=== PATIENT | male | born 1950 | race Caucasian/White ===

== ENCOUNTER 2020-03-26 00:06 | Outpatient (CLI) | payer MEDICARE, OTHER, SELFPAY ==
[2020-03-26 18:58] LABS: SARS-CoV-2 RNA PCR Negative
== END 2020-03-26 00:07 | disposition home or self-care (01) ==
LOC: ANHCOVIDDT 00:07
PROVIDERS: PCP Internal Medicine; Visit Provider Internal Medicine Gastroenterology
DX: Z01.812 Encounter for preprocedural laboratory examination (principal); Z20.828 Contact with and (suspected) exposure to other viral communicable diseases
CPT/HCPCS: 87635; C9803; U0003

== ENCOUNTER 2020-03-28 00:13 | Day surgery (SDC) | payer MEDICARE, OTHER, SELFPAY ==
[2020-03-18 15:27] VITALS: BMI 22.1
[2020-03-28 08:07] VITALS: BP 124/74; PULSE 80; RESP 16; TEMP 36.6; O2SAT 98; BMI 21.2
[2020-03-28] MEDS: LACTATED RINGERS 1,000 ML 150 ML IV CONT (08:18)
--- NOTE | 2020-03-28 08:25 | PM.HPGS ---
History of Present Illness History of Present Illness Consent: Risks, benefits, and alternatives have been discussed and questions answered. Patient agrees to proceed with procedure. Chief complaint: Hx Colon Polyps Narrative: Jerardo Ugarte is a 70 year old W male referred for screening colonoscopy secondary to history of colonic polyps and a family history of colon cancer in his brother diagnosed in his 50s. patient states he has had 3 colonoscopies in the past and previous institution is last was 3 years ago and 3 polyps were removed. Patient is asymptomatic. REPLACED BY [facility] Past Medical History Medical History (Updated 11/28/19 @ 09:08 by Milad Morales, ) Basal cell carcinoma BPH (benign prostatic hyperplasia) Colon polyps Erectile dysfunction Gout Vitamin D deficiency Surgical History Surgical History (Updated 11/28/19 @ 08:34 by Yazmin Correa [facility]) H/O hernia repair History of mastoidectomy History of thyroidectomy Family History Family History (Updated 11/28/19 @ 08:36 by Yazmin Correa CMA) Mother , age 54 MVA (motor vehicle accident) Father , age 33 freak accident Electrocution Social History Social History Gender identity (if verbalized by the patient): Male Meds Home Medications and Allergies Home Medications Medication Instructions Recorded Confirmed Type cholecalciferol (vitamin D3) 50 50 mcg PO DAILY 11/28/19 03/28/20 History mcg (2,000 unit) capsule multivitamin,hw-qvsv-oozeqwia 1 tablet PO DAILY 11/28/19 03/28/20 History omega-3 fatty acids 1,000 mg 1,000 mg PO DAILY 11/28/19 03/28/20 History capsule tadalafil 20 mg tablet 20 mg PO DAILY PRN 11/28/19 03/18/20 History tamsulosin 0.4 mg capsule 0.4 mg PO DAILY 11/28/19 03/28/20 History allopurinol 200 mg PO DAILY 03/18/20 03/28/20 History finasteride 5 mg PO DAILY 03/18/20 03/28/20 History Allergies Allergy/AdvReac Type Severity Reaction Status Date / Time No Known Allergies Allergy Verified 03/28/20 07:52 Vital Signs Vital Signs - 24 hr 03/28/20 08:07 Temperature 36.6 C Pulse Rate 80 Respiratory Rate 16 Blood Pressure 124/74 Pulse Oximetry 98 Exam Const: Orientation/consciousness: patient oriented x3 Resp: Auscultation: clear to auscultation bilaterally Cardio: Rate: regular rate Rhythm: regular rhythm Heart sounds: no murmurs GI: GI Palp: Yes Soft to palpation, No Tenderness to palpation present (GI), Yes No hepatosplenomegaly present and No Palpable mass present Auscultation: normal bowel sounds Neuro: General: patient oriented x3 and no focal motor deficits Extrem: General: no pedal edema Assessment and Plan Additional Plan Screening colonoscopy in high risk patient
--- NOTE | 2020-03-28 08:32 | P.PNAN_ITS ---
Anes - Initial Pre Proc Eval Procedure: Operation Date: 03/28/20 09:00 Proposed Procedures p Screening Colonoscopy - Hernan Dow MD Date/Time: 03/28/20 08:32 Surgeon: Hernan Dow MD Pre Op Diagnosis: Hx Colon Polyps Patient Data Age: 70 Gender: M Height: 5 ft 10 in Weight: 67.1 kg Last Vital Signs Temp 98 F 03/28/20 08:07 Pulse 80 03/28/20 08:07 Resp 16 03/28/20 08:07 BP 124/74 03/28/20 08:07 Pulse Ox 98 03/28/20 08:07 Allergies Allergy/AdvReac Type Severity Reaction Status Date / Time No Known Allergies Allergy Verified 03/28/20 07:52 Home Medications Medication Instructions Recorded Confirmed Type cholecalciferol (vitamin D3) 50 50 mcg PO DAILY 11/28/19 03/28/20 History mcg (2,000 unit) capsule multivitamin,bu-ivuv-byanzdrc 1 tablet PO DAILY 11/28/19 03/28/20 History omega-3 fatty acids 1,000 mg 1,000 mg PO DAILY 11/28/19 03/28/20 History capsule tadalafil 20 mg tablet 20 mg PO DAILY PRN 11/28/19 03/18/20 History tamsulosin 0.4 mg capsule 0.4 mg PO DAILY 11/28/19 03/28/20 History allopurinol 200 mg PO DAILY 03/18/20 03/28/20 History finasteride 5 mg PO DAILY 03/18/20 03/28/20 History Patient hx anesthesia problems: none Family hx anesthesia problems: none [facility] Past Medical History Medical History (Updated 03/28/20 @ 08:32 by Gerson Reyes MD) Basal cell carcinoma BPH (benign prostatic hyperplasia) Colon polyps Erectile dysfunction GERD (gastroesophageal reflux disease) Gout Vitamin D deficiency Surgical History Surgical History (Updated 11/28/19 @ 08:34 by Yazmin Correa CMA) H/O hernia repair History of mastoidectomy History of thyroidectomy Family History Family History (Updated 11/28/19 @ 08:36 by Yazmin Correa CMA) Mother , age 54 MVA (motor vehicle accident) Father , age 33 freak accident Electrocution Social History Social History Gender identity (if verbalized by the patient): Male Anes - Eval Final PreProcedure Day of Procedure 03/28/20 08:32 Patient weight: normal Heart: regular rate and rhythm Lungs: clear to auscultation Airway: Mallampati scale class II Neurological: alert and oriented Last oral intake: >/= 8 hours ASA classification: II Emergent: no Anesthetic plan: proceed Anesthesia type and monitoring: general GIVS and standard monitoring Informed Consent: The patient's anesthetic plan and its attendant risks and benefits were discussed with the patient/family/POA. Questions were solicited and answers provided to the satisfaction of the patient/family/POA.
[2020-03-28 09:18] VITALS: BP 110/77; PULSE 80; RESP 16; O2SAT 98
[2020-03-28 09:28] VITALS: BP 108/64; PULSE 73; RESP 20; O2SAT 99
[2020-03-28 09:56] VITALS: BP 114/69; PULSE 72; RESP 19; O2SAT 100
== END 2020-03-28 10:07 | disposition home or self-care (01) ==
PROVIDERS: PCP Internal Medicine; Visit Provider Internal Medicine Gastroenterology
PROC: 0DJD8ZZ Inspection of Lower Intestinal Tract, Via Natural or Artificial Opening Endoscopic (ICD-10-PCS; CPT 45378; principal; 2020-03-28 09:00)
DX: Z12.11 Encounter for screening for malignant neoplasm of colon (principal); Z86.010 Personal history of colon polyps; Z80.0 Family history of malignant neoplasm of digestive organs; K57.30 Diverticulosis of large intestine without perforation or abscess without bleeding; K64.4 Residual hemorrhoidal skin tags; K64.8 Other hemorrhoids; K21.9 Gastro-esophageal reflux disease without esophagitis; N40.0 Benign prostatic hyperplasia without lower urinary tract symptoms; M10.9 Gout, unspecified; E55.9 Vitamin D deficiency, unspecified; Z85.828 Personal history of other malignant neoplasm of skin
CPT/HCPCS: G0121; J2704; J7120

== ENCOUNTER 2021-02-13 08:33 | Outpatient (CLI) | payer MEDICARE, OTHER, SELFPAY ==
--- NOTE | ~2021-02-13 | XR_ITS ---
EXAMINATION: XR chest 2V 02/13/2021 08:55 INDICATION: Prostate cancer PROCEDURE: PA and lateral views of the chest COMPARISON: 2 view chest FINDINGS: The lungs are clear. The cardiomediastinal silhouette is within normal limits. There are no pleural effusions. There is no pneumothorax suspected. IMPRESSION: 1: NO ACUTE CARDIOPULMONARY DISEASE. Reviewed, dictated and finalized at location B.
--- NOTE | ~2021-02-13 | NM_ITS ---
EXAMINATION: NM bone scan whole body DATE: 02/13/2021 12:30 INDICATION: Prostate cancer. TECHNIQUE: 26.4 mCi Tc-99m HDP was administered intravenously. Delayed whole-body scintigrams were o btained. COMPARISON: CT abdomen and pelvis 02/13/2021 FINDINGS: There is increased activity in subtrochanteric region of proximal right femur correlating w ith a sclerotic lesion by CT. By CT, the lesion is eccentric with sclerotic rim and central sclerotic matrix. The lesion is contiguous with the posterior cortex, which is hypodense relative to normal co rtex. There is joint-centered increased activity in the sternoclavicular joints and acromioclavicular joints, likely osteoarthritis. IMPRESSION: 1. Lesion of increased activity in subtrochanteric region of proximal right femur, most likely a yolis gn lesion such as fibrous dysplasia. Metastatic disease cannot be excluded. Reviewed, dictated and finalized at location A. IMPRESSION: 1. Lesion of increased activity in subtrochanteric region of proximal right fem ur, most likely a benign lesion such as fibrous dysplasia. Metastatic disease c annot be excluded.
--- NOTE | ~2021-02-13 | CT_ITS ---
EXAMINATION: CT abdomen pelvis w con DATE: 02/13/2021 09:13 INDICATION: Prostate cancer TECHNIQUE: Computed tomography (CT) of the abdomen and pelvis was performed with 100 cc Omnipaque 350 intravenous contrast. The dose-length product was 254.08 mGy-cm. Automated exposure control and iter ative reconstruction technique were employed. COMPARISON: No prior studies for comparison. FINDINGS: There is dependent atelectasis. Heart size normal. No significant pleural or pericardial ef fusion. No significant vascular abnormality. No lymphadenopathy. There are changes of left inguinal h ernia repair. Colonic diverticulosis without evidence for diverticulitis. Mild bladder wall thickenin g. Nonobstructive bowel gas pattern. There is a 1 cm cyst of the liver contain macroscopic fat, most likely benign hepatic lipoma. There a re bilateral renal cysts, largest in the right kidney measures 3.6 cm. Gallbladder is present. The sp monique contains calcified granulomas. The pancreas and adrenal glands are normal. Normal appendix. No f ree air or free fluid. There are degenerative changes of the hips. There is a focal subtle focal scle rotic lesion proximal aspect of the right femur. Mild lower lumbar spondylosis. IMPRESSION: 1. Subtle sclerotic lesion proximal aspect of the right femur, most likely benign, although correlati on with bone scan recommended to assess for abnormal uptake. 2: Bladder wall thickening which may be due to underdistention, although cystitis not excluded. Reviewed, dictated and finalized at location B. IMPRESSION: 1. Subtle sclerotic lesion proximal aspect of the right femur, most likely yolis gn, although correlation with bone scan recommended to assess for abnormal upta ke. 2: Bladder wall thickening which may be due to underdistention, although cystit is not excluded.
[2021-02-13 09:04] LABS: Estimated Glomerular Filt Rate 60
== END 2021-02-13 08:34 | disposition home or self-care (01) ==
PROVIDERS: PCP Internal Medicine; Visit Provider Urology
DX: C61 Malignant neoplasm of prostate (principal); R93.7 Abnormal findings on diagnostic imaging of other parts of musculoskeletal system
CPT/HCPCS: 71046; 74177; 78306; A9561; Q9967

== ENCOUNTER 2021-04-24 09:56 | Outpatient (CLI) | payer MEDICARE, OTHER, SELFPAY ==
--- NOTE | 2021-04-24 10:44 | ECG_ITS ---
Measurements Intervals [place] Rate: 59 P: 65 CT: 175 QRS: 26 QRSD: 92 T: 34 QT: 406 QTc: 404 Interpretive Statements SINUS BRADYCARDIA ATRIAL PREMATURE COMPLEX POSSIBLE LEFT ATRIAL ENLARGEMENT BASELINE ARTIFACT- I, II, AVR, AVL BORDERLINE ECG Electronically Signed On 04-24-2021 11:32:08 CDT by Sudhakar Chapa D.O.
[2021-04-24 11:42] LABS: Basophils Percent Auto 0.3 % (0.2-1.2); Eosinophils Absolute Auto 0.3 K/mm3 (0-0.3); Eosinophils Percent Auto 3.8 % (0-4.4); Hematocrit 48.1 % (42.0-52.0); Hemoglobin 15.4 g/dL (14.0-18.0); Immature Granulocyte Absolute 0.02 K/mm3 (0.00-0.031); Immature Granulocyte Percent A 0.3 % (0-0.5); Lymphocytes Absolute Auto 2.18 K/mm3 (0.9-3.2); Lymphocytes Percent Auto 31.5 % (18.3-44.2); Mean Corpuscular Hemoglobin 30.7 pg (26-34); Mean Corpuscular Volume 95.8 fl (80-100); Mean Platelet Volume 10.3 fl (7.4-10.4); Monocytes Absolute Auto 0.9 K/mm3 (0.1-0.6); Monocytes Percent Auto 13.3 % (2.6-8.5); Neutrophils Absolute Auto 3.5 K/mm3 (1.3-6.7); Neutrophils Percent Auto 50.8 % (45.5-73.1); Platelet Count Result 220 k/mm3 (150-375); Red Blood Count 5.02 M/mm3 (4.6-6.20); Red Cell Distribution Width 13.1 % (11.5-14.5); White Blood Count 6.9 K/mm3 (4.5-10.0)
[2021-04-24 11:45] LABS: Add Urine Microscopic? YES; Appearance Urine Clear (Clear); Bilirubin Urine Negative (Negative); Blood Urine 2+ (Negative); Color Urine Yellow (Yellow); Glucose Urine UA Negative (Negative); Ketones Urine Negative (Negative); Leukocyte Esterase Ur Negative LEU/UL (Negative); Mucus Urine Rare /lpf; Nitrate Urine Negative (Negative); Protein Urine Negative (Negative); RBC Urine 0-2 /hpf (0-2); Specific Grav Ur 1.019 (1.001-1.035); Urobilinogen Urine Negative mg/dL (<2.0); WBC Urine 0-3 /hpf
[2021-04-24 11:47] LABS: Alanine Aminotransferase 34 U/L (4-50); Albumin Level 4.6 g/dL (3.5-5.1); Alkaline Phosphatase 66 U/L (38-126); Anion Gap 8 mmol/L (8-16); Aspartate Amino Transferase 42 U/L (17-59); Bilirubin,Total 1.4 mg/dL (0.2-1.3); Blood Urea Nitrogen 23 mg/dL (9-20); Calcium 9.9 mg/dL (8.4-10.2); Carbon Dioxide 29 mmol/L (22-30); Chloride 103 mmol/L (98-107); Estimated Glomerular Filt Rate > 60; Glucose 105 mg/dL (75-110); Potassium 4.2 mmol/L (3.4-5.0); Sodium 140 mmol/L (137-145)
[2021-04-24 12:01] LABS: Partial Thromboplastin Time 30.1 SECONDS (22.3-36.8); Prothrombin Time 13.3 Seconds (11.1-14.7)
== END 2021-04-24 09:57 | disposition home or self-care (01) ==
LOC: ANHSURGERY 10:02
PROVIDERS: PCP Internal Medicine; Visit Provider Urology
DX: C61 Malignant neoplasm of prostate (principal); Z01.818 Encounter for other preprocedural examination; R94.31 Abnormal electrocardiogram [ECG] [EKG]
CPT/HCPCS: 36415; 80053; 81001; 85025; 85610; 85730; 93005

== ENCOUNTER 2021-05-08 01:36 | Day surgery (SDC) | payer MEDICARE, OTHER, SELFPAY ==
[2021-04-24 10:05] VITALS: BMI 21.5
[2021-04-24 10:25] VITALS: BP 111/78; PULSE 65; RESP 16; TEMP 37.2; O2SAT 99
--- NOTE | 2021-05-05 07:46 | PM.IMHP ---
H&P: HPI History of Present Illness Date/Time: 05/05/21 07:46 Patient is a 71-year-old male who recently underwent evaluation for a PSA of 12.6. Prostate ultrasound and biopsy revealed a small, 17 gram prostate with Lul adenocarcinoma 6 and 7 in all 12 of 12 cores. Two of the cores demonstrated intraductal carcinoma. Staging CT abd/pelvis, bone scan and chest x-ray were essentially unremarkable. There was an area of unusual uptake in the femur but his alkaline phosphatase was normal. After discussion of therapeutic options including robotic prostatectomy, radiation therapy in its various forms, active surveillance and androgen ablation he elects for the former. He is aware of the risk including, but not limited to, adverse cardiopulmonary events, persistent carcinoma, need for adjuvant or salvage therapy, rectal injury, urinary incontinence and erectile dysfunction. Chief Complaint: Prostate cancer Review of Systems Cardiovascular: Cardiovascular: Denies chest pain, Denies lightheadedness, Denies palpitations and Denies dyspnea Respiratory: Respiratory: Denies dyspnea Gastrointestinal: Gastrointestinal: Denies diarrhea, Denies nausea and Denies vomiting Genitourinary: Genitourinary: Denies hematuria and Denies dysuria Endocrine: Endocrine: Denies palpitations [facility] Past Medical History Medical History Basal cell carcinoma BPH (benign prostatic hyperplasia) Colon polyps Elevated PSA Erectile dysfunction GERD (gastroesophageal reflux disease) Gout Vitamin D deficiency Surgical History Surgical History H/O hernia repair History of mastoidectomy History of thyroidectomy Family History Family History Mother , age 54 MVA (motor vehicle accident) Father , age 33 freak accident Electrocution Social History Social History Smoking packs per day: 2 Smoking cigarettes per day: 40.0 Years smoked: 15 Smoking pack-years: 30.00 Smoking status: Former smoker Tobacco type: cigarettes Smoking end date: 10/18/83 Alcohol intake: current Drinks per week: 4 Gender identity (if verbalized by the patient): Male Spiritual care concerns: No Meds Home Medications and Allergies Home Medications Medication Instructions Recorded Confirmed Type cholecalciferol (vitamin D3) 50 50 mcg PO DAILY 11/28/19 04/24/21 History mcg (2,000 unit) capsule multivitamin,my-toit-ozqxineh 1 tablet PO DAILY 11/28/19 04/24/21 History omega-3 fatty acids 1,000 mg 1,000 mg PO DAILY 11/28/19 04/24/21 History capsule tadalafil 20 mg tablet 20 mg PO DAILY PRN 11/28/19 04/24/21 History finasteride 5 mg PO DAILY 03/18/20 04/24/21 History allopurinol 200 mg PO QPM 04/24/21 04/24/21 History famotidine [Pepcid AC] 20 mg PO PRN PRN 04/24/21 04/24/21 History glucos sul [id number]-[id number]-C-Mn 1 cap PO DAILY 04/24/21 04/24/21 History [Glucosamine Chondroitin] tamsulosin 0.4 mg PO HS 04/24/21 04/24/21 History turmeric 400 mg PO DAILY 04/24/21 04/24/21 History vitamin E 100 unit PO DAILY 04/24/21 04/24/21 History Allergies Allergy/AdvReac Type Severity Reaction Status Date / Time No Known Allergies Allergy Verified 04/24/21 10:06 Exam Const: General: no acute distress Resp: Effort & Inspection: normal respiratory effort GI: Inspection: non-distended GI Palp: No abdominal tenderness and No Guarding due to palpation present (GI) Auscultation: normal bowel sounds Assessment and Plan Assessment and plan (1) Prostate cancer: Code(s): C61 - Malignant neoplasm of prostate Status: Acute Assessment and Plan: robotic assisted laparoscopic prostatectomy with bilateral pelvic lymphadenectomy
--- NOTE | 2021-05-07 13:42 | WPDANESEPPF ---
Anes - Initial Pre Proc Eval Procedure: Operation Date: 05/08/21 07:30 Proposed Procedures p Robotic Prostatectomy with Bilateral Pelvic Lymph Nodes Dissection - Silvano Lee MD Date/Time: 05/07/21 13:42 Surgeon: Silvano Lee MD Pre Op Diagnosis: prostate cancer Patient Data Age: 71 Gender: M Height: 1.78 m Weight: 68.2 kg Last Vital Signs Temp 99.0 F 04/24/21 10:25 Pulse 65 04/24/21 10:25 Resp 16 04/24/21 10:25 BP 111/78 04/24/21 10:25 Pulse Ox 99 04/24/21 10:25 Allergies Allergy/AdvReac Type Severity Reaction Status Date / Time No Known Allergies Allergy Verified 05/08/21 06:21 Home Medications Medication Instructions Recorded Confirmed Type cholecalciferol (vitamin D3) 50 50 mcg PO DAILY 11/28/19 05/08/21 History mcg (2,000 unit) capsule multivitamin,ce-evqq-hiqdnlns 1 tablet PO DAILY 11/28/19 05/08/21 History omega-3 fatty acids 1,000 mg 1,000 mg PO DAILY 11/28/19 05/08/21 History capsule tadalafil 20 mg tablet 20 mg PO DAILY PRN 11/28/19 05/08/21 History finasteride 5 mg PO DAILY 03/18/20 05/08/21 History allopurinol 200 mg PO QPM 04/24/21 05/08/21 History famotidine [Pepcid AC] 20 mg PO PRN PRN 04/24/21 05/08/21 History glucos sul 4PWq-oyq-pifkr-C-Mn 1 cap PO DAILY 04/24/21 05/08/21 History [Glucosamine Chondroitin] tamsulosin 0.4 mg PO HS 04/24/21 05/08/21 History turmeric 400 mg PO DAILY 04/24/21 05/08/21 History vitamin E 100 unit PO DAILY 04/24/21 05/08/21 History Patient hx anesthesia problems: none Family hx anesthesia problems: none PMFSH Past Medical History Medical History Basal cell carcinoma BPH (benign prostatic hyperplasia) Colon polyps Elevated PSA Erectile dysfunction GERD (gastroesophageal reflux disease) Gout Vitamin D deficiency Surgical History Surgical History H/O hernia repair History of mastoidectomy History of thyroidectomy Family History Family History Mother , age 54 MVA (motor vehicle accident) Father , age 33 freak accident Electrocution Social History Social History Smoking packs per day: 2 Smoking cigarettes per day: 40.0 Years smoked: 15 Smoking pack-years: 30.00 Smoking status: Former smoker Tobacco type: cigarettes Smoking end date: 10/18/83 Alcohol intake: never Drinks per week: 4 Living arrangements: with family Gender identity (if verbalized by the patient): Male Spiritual care concerns: No Anes - Eval Final PreProcedure Day of Procedure 05/07/21 13:42 Patient weight: normal Heart: regular rate and rhythm Lungs: clear to auscultation Airway: Mallampati scale class II Neurological: alert and oriented Last oral intake: >/= 8 hours ASA classification: III Emergent: no Anesthetic plan: proceed Anesthesia type and monitoring: general ETT and standard monitoring Informed Consent: The patient's anesthetic plan and its attendant risks and benefits were discussed with the patient/family/POA. Questions were solicited and answers provided to the satisfaction of the patient/family/POA.
[2021-05-08] VITALS (13 sets, daily range): BP systolic 107–132; BP diastolic 56–77; PULSE 64–94; RESP 12–20; TEMP 36.1–36.9; O2SAT 93–100; BMI 20.7
--- NOTE | 2021-05-08 06:27 | WPDHPUPDATE1 ---
History and Physical Update Update Date/Time: 05/08/21 06:27 History and Physical has been reviewed, including an updated exam of the patient. There are NO changes in the patient's condition. Risks, benefits, and alternatives have been discussed and questions answered. Patient agrees to proceed with procedure.
[2021-05-08] MEDS: LACTATED RINGERS 1,000 ML 30 ML IV CONT ×2 (06:43→10:34)
[2021-05-08] MEDS: ceFAZolin 2 GM/D5W 50 ML 2 GM/50 ML BAG IVPB (07:30)
--- NOTE | 2021-05-08 10:44 | W.PM.PROC2 ---
Procedure Note - Detailed Date of Procedure 05/08/21 Pre-op Diagnosis Prostate cancer Post-op Diagnosis same Procedure Performed Robotic assisted laparoscopic prostatectomy with bilateral pelvic lymphadenectomy Surgeon Silvano Lee MD [employer] [facility] [place] Anesthesia general Findings No gross extraprostatic disease Description of Procedure The patient was brought to the operative suite, where he was prepped and draped in routine sterile fashion while in a dorsal lithotomy, deep Trendelenburg position. A supraumbilical 10 mm trocar was placed after insufflation of the abdomen with a Veress needle. Three robotic ports were then placed under direct vision. Two of these were placed in the right lower quadrant - 10 cm and 20 cm lateral to, and in line with, the umbilicus. A third robotic trocar was placed 10 cm to the left of the umbilicus, and 20 cm to the left of the umbilicus, a 12 mm standard laparoscopic trocar was placed to be used as an operations and intelligence assistant port. Lastly, a 5 mm trocar was placed in the left upper quadrant midway between the umbilicus and the left robotic trocar. Attention was then turned to the prostatectomy. I opted for a posterior approach in this patient. An incision was made in the parietal peritoneum along the posterior bladder/posterior prostate about 2 cm above the reflection of the peritoneum over the anterior rectum. The seminal vesicles and vas deferens were immediately identified. Dissection is undertaken in a fashion so as to avoid electrocautery as much as possible, particularly near the tips of the seminal vesicles. Dissection was also carried out in the midline so as to avoid any encounters with the ureters. The vas deferens and the seminal vesicles were dissected in their entirety to the base of the prostate. The plane anterior to Denoviller's fascia, anterior to the rectum and posterior to the prostate was then developed. I then dropped the bladder by incising the anterior parietal peritoneum just lateral to the median umbilical ligaments bilaterally. The bladder was dropped from the anterior abdominal and pelvic wall. The endopelvic fascia was identified and incised bilaterally, allowing for dissection of the posterior-lateral aspect of the prostate. The puboprostatic ligaments were transected near their origin from the posterior pubic ramus. This posterior lateral dissection of the prostate is also undertaken in a fashion so as to avoid electrocautery as much as possible. The dorsal vein of the penis is then secured with an 0 -Vicryl ligature. Attention is then turned to the bladder neck. The anterior bladder neck is incised at the vesico-prostatic junction. The previously placed urethral catheter was drawn through the urethrotomy. A very small bladder neck was maintained throughout the remainder of this dissection. The posterior bladder neck was incised in a fashion so as to avoid any injury to the ureteral orifices. Again, the small aperture of the bladder neck was maintained. The previously dissected vas deferens and the seminal vesicles were brought through the posterior bladder neck incision. The lateral prostatic pedicles were then carefully dissected from the lateral aspect of the prostate bilaterally. The prostatic pedicles were secured with Weck clips and transected. The neurovascular bundles were carefully dissected from the posterior-lateral aspect of the prostate. The dorsal vein of the penis was incised with electrocautery. Using cold scissors, the urethra was incised. After withdrawing the previously placed urethral catheter, the posterior urethra was sharply incised, as was the rectalurethralis muscle. Attention was then turned to a bilateral pelvic lymphadenectomy. The limits of this dissection were similar bilaterally. Specifically, the limits were the bifurcation of the common iliac vein proximally, the inguinal ligament distally, the obturator nerve posteriorly and the anterior asp
--- NOTE | 2021-05-08 11:32 | SUR.PHASEI ---
PT HAS MILD GENERALIZED SHAKING; DECLINED MED FOR IT.
--- NOTE | 2021-05-08 12:22 | PC.NURSE ---
This patient, Jerardo Ugarte, was admitted to Medical Room 244-. Patient/family oriented to hospital policies and general routines including ID bracelet, bed and alarms, visiting hours, pain management, procedures, bathroom and other care routines, personal items, smoking policy, room service/diet, and visiting hours. Information on how to activate the Rapid Response Team has been discussed. Patient/Family are encouraged to report perceived risks to care and to ask questions if they do not understand what they are told or what they should do.
[2021-05-08] MEDS: LACTATED RINGERS 1,000 ML 125 ML IV CONT ×2 (12:43→21:38)
[2021-05-08] MEDS: HYOSCYAMINE SULFATE 0.125 MG TABLET SUBLINGUAL (14:14)
[2021-05-08] MEDS: KETOROLAC 15 MG/ML VIAL (*BKC) IV PUSH (14:14)
[2021-05-08] MEDS: allopurinoL 100 MG TABLET 200 MG PO (17:47)
[2021-05-09 01:39] VITALS: BP 111/53; PULSE 54; RESP 20; TEMP 36.3; O2SAT 98
[2021-05-09 05:39] VITALS: BP 110/60; PULSE 57; RESP 20; TEMP 36.4; O2SAT 98
[2021-05-09 05:51] LABS: Hematocrit 35.7 % (42.0-52.0); Hemoglobin 11.8 g/dL (14.0-18.0)
[2021-05-09 06:06] LABS: Anion Gap 5 mmol/L (8-16); Blood Urea Nitrogen 15 mg/dL (9-20); Calcium 8.4 mg/dL (8.4-10.2); Carbon Dioxide 29 mmol/L (22-30); Chloride 104 mmol/L (98-107); Estimated CRCL calculation 52 ml/min; Estimated Glomerular Filt Rate > 60; Glucose 128 mg/dL (65-110); Potassium 4.1 mmol/L (3.4-5.0); Sodium 138 mmol/L (137-145)
--- NOTE | 2021-05-09 06:14 | WPDUROPN2 ---
Progress Note: A&P Assessment and Plan (1) Prostate cancer: Code(s): C61 - Malignant neoplasm of prostate Status: Acute Assessment and Plan: Doing well POD#1 Increase ambulation/diet Likely home later today Subjective Subjective Date/Time Seen: 05/09/21 06:14 Comfortable, no complaints Review of Systems Cardiovascular: Cardiovascular: Denies chest pain, Denies lightheadedness, Denies palpitations and Denies dyspnea Respiratory: Respiratory: Denies dyspnea Gastrointestinal: Gastrointestinal: Denies diarrhea, Denies nausea and Denies vomiting Genitourinary: Genitourinary: Denies hematuria and Denies dysuria Endocrine: Endocrine: Denies palpitations Exam Const: General: no acute distress Resp: Effort & Inspection: normal respiratory effort GI: Inspection: non-distended GI Palp: No abdominal tenderness and No Guarding due to palpation present (GI) Auscultation: normal bowel sounds Objective Data Vital Signs Vital Signs: Vital Signs - 24 hr 05/08/21 06:26 05/08/21 10:34 05/08/21 10:45 Temperature 97.0 F L 98.4 F Pulse Rate 84 64 66 Respiratory Rate 18 12 15 Blood Pressure 107/70 113/66 123/76 Pulse Oximetry 100 100 100 05/08/21 11:00 05/08/21 11:15 05/08/21 11:30 Temperature 98 F Pulse Rate 73 80 94 Respiratory Rate 16 18 18 Blood Pressure 117/69 132/77 111/75 Pulse Oximetry 100 96 93 05/08/21 11:45 05/08/21 11:54 05/08/21 12:09 Temperature 97.2 F L 97.2 F L Pulse Rate 70 74 79 Respiratory Rate 15 16 16 Blood Pressure 126/76 129/72 131/72 Pulse Oximetry 95 94 96 05/08/21 12:39 05/08/21 14:00 05/08/21 17:39 Temperature 97.3 F L 97.4 F L 97.4 F L Pulse Rate 75 64 66 Respiratory Rate 16 16 16 Blood Pressure 127/71 117/60 126/62 Pulse Oximetry 96 96 96 05/08/21 21:39 Temperature 98.3 F Pulse Rate 64 Respiratory Rate 20 Blood Pressure 119/56 L Pulse Oximetry 98 Intake/Output Intake/Output: Intake & Output 05/06/21 05/07/21 05/08/21 05/09/21 23:59 23:59 23:59 23:59 Intake Total 3670 100 Output Total 2645 Balance 1025 100 Meds/Results Medications: Active Medications Generic Name Dose Route Start Last Admin Trade Name Alissa PRN Reason Stop Dose Admin Allopurinol 200 mg 05/08/21 18:00 05/08/21 17:47 Allopurinol 100 Mg Tablet PO 200 mg QPM DAVID Administration Hyoscyamine 0.125 mg 05/08/21 11:54 05/08/21 14:14 Hyoscyamine Sulfate 0.125 Mg Tablet SUBLINGUAL 0.125 mg Q4H PRN Administration Bladder Spasm Lactated Ringer's 1,000 mls @ 125 mls/hr 05/08/21 11:54 05/08/21 21:38 Lr - Lactated Ringers Iv IV CONT 125 mls/hr .Q8H DAVID Administration Acetaminophen 1,000 mg in 100 mls @ 400 mls/hr 05/08/21 13:00 05/09/21 02:20 Ofirmev 1,000 Mg Ivpb IVPB 05/09/21 13:01 Infused Q6H DAVID Infusion Ketorolac Tromethamine 15 mg 05/08/21 11:54 05/08/21 14:14 Ketorolac 15 Mg/Ml Vial (*Bk) IV PUSH 05/09/21 11:55 15 mg Q6H PRN Administration Pain Rated 4-6 Levofloxacin 500 mg 05/09/21 09:00 Levofloxacin 500 Mg Tablet PO DAILY DAVID Naloxone HCl 0.1 mg 05/08/21 11:54 Naloxone Hcl 0.4 Mg/Ml Vial IV PUSH Q2M PRN Opiate Reversal Labs Labs: Laboratory Results - last 24 hr 05/08/21 05/09/21 05/09/21 06:41 05:25 05:25 Hgb 11.8 L D Hct 35.7 L Sodium 138 Potassium 4.1 Chloride 104 Carbon Dioxide 29 Anion Gap 5 L BUN 15 D Creatinine 1.10 Estim Creat Clear Calc 52 Estimated GFR > 60 Glucose 128 H Calcium 8.4 Blood Type O Positive Antibody Screen Negative
[2021-05-09] MEDS: LACTATED RINGERS 1,000 ML 125 ML IV CONT (08:05)
[2021-05-09] MEDS: levoFLOXacin 500 MG TABLET PO (08:05)
[2021-05-09 10:00] VITALS: BP 125/71; PULSE 63; RESP 16; TEMP 36; O2SAT 100
[2021-05-09] MEDS: CALCIUM CARBONATE (TUMS) 500 MG (200 MG ELEMENTAL) PO (10:49)
[2021-05-09] MEDS: HYOSCYAMINE SULFATE 0.125 MG TABLET SUBLINGUAL (12:04)
[2021-05-09] MEDS: FAMOTIDINE 20 MG TABLET PO (12:05)
--- NOTE | 2021-05-09 12:25 | PM.DS ---
DS: Admitting Diagnosis Admitting Diagnosis Prostate cancer DS: Discharge Diagnosis Discharge Diagnosis (1) Prostate cancer: Code(s): C61 - Malignant neoplasm of prostate Status: Acute DS: Summary Hospital Course Hospital Course: This patient was admitted on the morning of his planned robotic prostatectomy. This procedure was uneventful, as was his postoperative course. By the evening of the procedure he was sitting at the bedside in tolerating a liquid diet. The following morning he was ambulating freely and tolerating regular food. His catheter drainage remained essentially clear throughout. His postoperative hemoglobin and serum creatinine were unremarkable. At the time of discharge he has been instructed in appropriate care for his Ennis catheter with both a leg bag and bedside bag. He will be discharged with plans to follow-up in 1 week with a cystogram. Time Spent with Patient Time attestation: Total time spent providing and/or coordinating discharge services: Exam Const: General: no acute distress Resp: Effort & Inspection: normal respiratory effort GI: Inspection: non-distended GI Palp: No abdominal tenderness and No Guarding due to palpation present (GI) Auscultation: normal bowel sounds DS: Data Data Completed and Pending Pending studies at discharge: Pending at discharge 05/08/21 09:33 Surgical [PTH] Routine Surgical [PTH] Routine Labs on day of discharge: Labs from last 24 hours 05/09/21 05/09/21 05:25 05:25 Hgb 11.8 L D Hct 35.7 L Sodium 138 Potassium 4.1 Chloride 104 Carbon Dioxide 29 Anion Gap 5 L BUN 15 D Creatinine 1.10 Estim Creat Clear Calc 52 Estimated GFR > 60 Glucose 128 H Calcium 8.4 Discharge Plan Discharge Patient Disposition: Home, Self-Care Discharge Instructions: 1) Ennis catheter -> leg bag / bedside bag at night. 2) No lifting/straining >15lbs. x3 weeks. 3) No driving x1-week. 4) Resume normal, pre-operative diet. 5) My office will contact regarding follow-up in 1-week with cystogram. Stand Alone Forms: General Discharge Instructions Discharge Orders: Discharge Order (Routine); Ordered 05/09/21 Ordered By: Silvano Lee Discharge Medications: New docusate sodium [Colace] 100 mg capsule 100 mg PO DAILY Qty: 30 RF: 0 hydrocodone-acetaminophen 5-325 mg tablet 1 - 2 tablet PO Q6H PRN (Reason: pain) Qty: 20 RF: 0 sulfamethoxazole-trimethoprim 800-160 mg tablet 1 tablet PO Q12H Qty: 10 RF: 0 hyoscyamine sulfate 0.125 mg tablet 0.125 mg PO Q6H PRN (Reason: bladder spasms) Qty: 20 RF: 2 Continued tadalafil 20 mg tablet 20 mg PO DAILY PRN (Reason: Erectile Dysfunction) RF: 0 allopurinol 100 mg tablet 200 mg PO QPM RF: 0 famotidine [Pepcid AC] 20 mg Tablet 20 mg PO PRN PRN (Reason: Heartburn) RF: 0 Held omega-3 fatty acids [Fish Oil Concentrate] 1,000 mg capsule 1,000 mg PO DAILY RF: 0 Hold Instructions: Resume on 05/14/21. cholecalciferol (vitamin D3) 50 mcg (2,000 unit) capsule 50 mcg PO DAILY RF: 0 Hold Instructions: Resume on 05/14/21. Complete Multivitamin Tablet 1 tablet PO DAILY RF: 0 Hold Instructions: Resume on 05/14/21. tamsulosin 0.4 mg capsule 0.4 mg PO HS RF: 0 Hold Instructions: Resume on 05/14/21. vitamin E 100 unit Tablet 100 unit PO DAILY RF: 0 Hold Instructions: Resume on 05/14/21. Glucosamine Chondroitin 550-30-1 mg Capsule 1 cap PO DAILY RF: 0 Hold Instructions: Resume on 05/14/21. turmeric 400 mg Capsule 400 mg PO DAILY RF: 0 Hold Instructions: Resume on 05/14/21. Discontinued finasteride 5 mg Tablet 5 mg PO DAILY RF: 0
== END 2021-05-09 13:35 | disposition home or self-care (01) ==
LOC: ANHSURGERY 06:10 → ANH2MED 11:57
PROVIDERS: PCP Internal Medicine; Visit Provider Urology
PROC: 0VT04ZZ Resection of Prostate, Percutaneous Endoscopic Approach (ICD-10-PCS; CPT 55867; principal; 2021-05-08 07:30)
DX: C61 Malignant neoplasm of prostate (principal); K21.9 Gastro-esophageal reflux disease without esophagitis; M10.9 Gout, unspecified; E55.9 Vitamin D deficiency, unspecified; Z87.891 Personal history of nicotine dependence
CPT/HCPCS: 55866; 38571; S2900; 36415; 80048; 85014; 85018; 86850; 86900; 86901; 88305; 88307; 88309; A9270; J0131; J0690; J1100; J1170; J1885; J2250; J2405; J2704; J2710; J3010; J7030; J7120; Q9968

== ENCOUNTER 2021-05-16 13:05 | Outpatient (CLI) | payer MEDICARE, OTHER, SELFPAY ==
--- NOTE | ~2021-05-16 | XR_ITS ---
EXAMINATION: CYSTOGRAM DATE: 05/16/2021 13:37 INDICATION: Prostate cancer follow-up TECHNIQUE: Initial financial report service sales agent radiograph of the pelvis was performed. There was retrograde administration of Omnipaque 350 mixed with saline contrast into patient's existing vinson catheter. Fluoroscopic lynn ges of the pelvis were obtained. A post-void image was also performed. FINDINGS: There is normal filling of the bladder. Bladder margins are slightly trabeculated. No extra vasation of contrast or vesicoureteral reflux. Small bladder diverticulum noted along the right. IMPRESSION: 1. No evidence for bladder extravasation or reflux. Reviewed, dictated and finalized at location A.
== END 2021-05-16 13:06 | disposition home or self-care (01) ==
LOC: ANHIMG 13:08
PROVIDERS: PCP Internal Medicine; Visit Provider Urology
DX: C61 Malignant neoplasm of prostate (principal)
CPT/HCPCS: 51600; 74430; Q9967

== ENCOUNTER 2021-08-23 08:35 | Outpatient (CLI) | payer MEDICARE, SELFPAY ==
--- NOTE | ~2021-08-23 | MR_ITS ---
EXAMINATION: MR femur RT wo/w con DATE: 08/23/2021 10:06 INDICATION: Disorder of bone, unspecified. TECHNIQUE: Magnetic resonance imaging (MRI) of the right femur was performed without and with 13 mL M ultiHance intravenous contrast. Sequences included axial, coronal, and sagittal T1-weighted FSE and S TIR FSE, axial T1-weighted FS FSE, and postcontrast axial, coronal, and sagittal T1-weighted FS FSE. COMPARISON: CT abdomen and pelvis 02/13/2021, bone scan 02/13/2021 FINDINGS: Bone alignment is normal. No fracture. In the subtrochanteric region of proximal right femu r, there is a 3.1 cm lesion of increased T2-weighted signal intensity, decreased T1-weighted signal i ntensity, and contrast enhancement with involvement of the posterior cortex. There is moderate osteoa rthritis of the hips. The musculature is normal. IMPRESSION: 1. Lesion in subtrochanteric region of proximal right femur, stable from 02/13/2021. This finding is m ost likely a benign lesion such as fibrous dysplasia. Metastatic disease cannot be excluded. Reviewed, dictated and finalized at location A. NG MACHINE OPERATOR IMPRESSION: 1. Lesion in subtrochanteric region of proximal right femur, stable from 021. This finding is most likely a benign lesion such as fibrous dysplasia. Met astatic disease cannot be excluded.
[2021-08-23 09:11] LABS: Estimated Glomerular Filt Rate > 60
== END 2021-08-23 08:36 | disposition home or self-care (01) ==
PROVIDERS: PCP Internal Medicine; Visit Provider Nurse Practitioner
DX: M89.9 Disorder of bone, unspecified (principal)
CPT/HCPCS: 73720; A9577

== ENCOUNTER → 2022-09-08 10:26 | Outpatient (CLI) | payer MEDICARE, SELFPAY ==
--- NOTE | ~2022-09-08 | XR_ITS ---
XR chest 2V 09/08/2022 10:42 Indication: Pleurodynia Procedure: 2 view chest Comparison: 02/13/2021 Findings: Heart size normal. No focal air space disease, pulmonary edema, pleural effusion or suspect ed pneumothorax. No pleural effusion or pneumothorax. No acute osseous abnormality. Impression: 1: No acute cardiopulmonary disease. Reviewed, dictated and finalized at location B. KET WINDER OPERATOR Impression: 1: No acute cardiopulmonary disease.
== END ==
PROVIDERS: PCP Nurse Practitioner; Visit Provider Nurse Practitioner
DX: R07.81 Pleurodynia (principal)
CPT/HCPCS: 71046

== ENCOUNTER 2022-09-21 13:20 | Outpatient (CLI) | payer MEDICARE, SELFPAY ==
--- NOTE | ~2022-09-21 | PE_ITS ---
EXAMINATION: PET_PETPSMAST_PT DATE: 09/21/2022 15:32 INDICATION: Prostate cancer with rising PSA level TECHNIQUE: 10.928 mCi of pipflufolastat F-18 (18-F-DCFPyL) was administered i.v. Low dose computed t omography (CT) images were acquired from the base of the brain to the base of the brain to the proxim al thighs for attenuation correction and anatomic localization. Positron emission tomography (PET) im ages were acquired in the same distribution beginning 80 minutes after injection. Images including fu sed PET/CT images were reconstructed in axial, coronal, and sagittal planes. Automated exposure contr ol technique was employed. The dose-length product was 506.24mGy-cm. COMPARISON: CT abdomen and pelvis and bone scan dated 02/13/2021 and MRI dated 08/23/2021 FINDINGS: Head/neck: Typical pattern of symmetric physiologic increased activity in the lacrimal, parotid and submandibula r glands as well as along the mucosa of the oropharynx and nasopharynx. No pathologically enlarged ce rvical lymphadenopathy or suspicious foci of increased uptake in the visualized head or neck. Chest: Mild emphysema. Subcentimeter spiculated opacity at the left apex with mild associated increased upta ke with maximal SUV of 2.2 which is slightly greater than the blood pool which at the heart demonstra aiden a mean SUV of 1.4 and maximum of 1.9. Small calcified left upper lobe nodule along with calcified left hilar lymph node consistent with old granulomatous disease. Dependent groundglass opacity consi stent with atelectasis in the bilateral lower lobes. No other suspicious pulmonary nodules, pneumonia , pulmonary edema or pleural effusion. Heart size is normal. No pericardial effusion. Thoracic aorta is normal in caliber. No pathologically enlarged thoracic lymphadenopathy. Abdomen/pelvis/proximal thighs: Physiologic renal accumulation and excretion of activity in the kidneys, bladder and along portions o f ureters. 3.9 cm cyst at the upper pole of the right kidney. Again seen is diffuse wall thickening o f the partially decompressed bladder. Change of interval prostatectomy. There are multiple additional smaller low-attenuation bilateral renal cysts. Unchanged 1.5 cm lesion at the lower pole of the left kidney and 8 mm lesion at the posterior interpolar region of the right kidney which demonstrates gre ater than simple fluid attenuation statistically most likely to represent complex proteinaceous/hemor rhagic cysts. Normal degree and slightly heterogenous pattern of increased uptake throughout the live r and spleen without radiologic correlate or dominant PSMA avid lesion. No significant interval haskins e in a likely benign 1.1 cm macroscopic fat attenuation nodule at the dome of the liver which could r epresent an intrahepatic lipoma or less likely focal hepatic steatosis or hemangioma. The gallbladde r, pancreas and bilateral adrenal glands are normal. Moderate uptake scattered throughout the bowels with typical duodenal predominance and without radiologic correlate, also likely physiologic. There i s moderate colonic diverticulosis with a sigmoid predominance. There is no adjacent inflammatory davis ge to suggest diverticulitis. There is a small region of uptake along the skin surface in the suprapu bic region without correlate on CT imaging most likely related to urine contamination. No other abnor mal foci of increased soft tissue uptake or pathologically enlarged lymphadenopathy in the abdomen, p husam or proximal thighs. Musculoskeletal: There is increased uptake with maximal velocity of 5.6 associated with a fracture at the anterior rig ht sixth rib. No definitive underlying lytic or blastic bone lesion. Moderate increased uptake associ ated with new sclerosis at both the left and right sacral ala as well as along the iliac side of the left sacroiliac joint where the uptake is a highest with maximal SUV of 5.7. The differential wou
== END 2022-09-21 13:21 | disposition home or self-care (01) ==
PROVIDERS: PCP Nurse Practitioner; Visit Provider Urology
DX: C61 Malignant neoplasm of prostate (principal)
CPT/HCPCS: 78815; A9595

== ENCOUNTER 2023-01-07 13:32 | Outpatient (CLI) | payer MEDICARE, SELFPAY ==
--- NOTE | ~2023-01-07 | CT_ITS ---
EXAMINATION: CT diagnostic chest wo con DATE: 01/07/2023 13:58 INDICATION: Prostate cancer TECHNIQUE: Computed tomography (CT) of the chest was performed without intravenous contrast. Automate d exposure control and iterative reconstruction technique were employed. Exam dose: 167.48 mGy-cm to emelia exam DLP. COMPARISON: 09/08/2022 PA and lateral chest FINDINGS: Asymmetrically very small or absent right lobe of thyroid gland. No hilar or mediastinal mass lesion or lymphadenopathy. No thoracic aortic aneurysm. Normal heart size. No pericardial or pleural effusion. Calcified left hilar nodes and calcified left upper lobe pulmonary granuloma, consistent with old gra nulomatous disease. Mild right apical pulmonary scarring. Approximately 3.8 x 6.7 mm irregular opacity in the left apex with radiating spicules. This may be du e to left apical scarring. Malignancy is not excluded. Comparison with any prior CT thorax examinatio ns is recommended. No prior CT thorax examinations are available, follow-up CT thorax in 6 months is recommended. No pulmonary infiltrate or consolidation or pulmonary mass lesion is noted otherwise. 11 mm fatty presumably benign lesion of the anterior hepatic dome. Normal adrenal glands. Calcified splenic granulomas; no splenomegaly. Indeterminate lesions of the kidneys, especially on the right Severe degenerative disc disease at C6-7. No suspicious osteolytic or osteoblastic lesions. IMPRESSION: 3.8 mm 6.7 mm irregular left apical opacity with radiating spicules, likely due to left apical scarring. Recommend comparison with prior CT thorax examinations, if available, to document st ability. If no prior CT examinations are available, follow-up CT thorax in 6 months is recommended. Multiple indeterminate renal lesions; consider CT abdomen with and without IV contrast material for f urther evaluation Reviewed, dictated and finalized at Location A. Reviewed, dictated and finalized at location A. IMPRESSION: 3.8 mm 6.7 mm irregular left apical opacity with radiating spicule s, likely due to left apical scarring. Recommend comparison with prior CT thora x examinations, if available, to document stability. If no prior CT examination s are available, follow-up CT thorax in 6 months is recommended. Multiple indeterminate renal lesions; consider CT abdomen with and without IV c ontrast material for further evaluation
== END 2023-01-07 13:33 | disposition home or self-care (01) ==
PROVIDERS: PCP Nurse Practitioner; Visit Provider Urology
DX: C61 Malignant neoplasm of prostate (principal); N28.89 Other specified disorders of kidney and ureter
CPT/HCPCS: 71250

== ENCOUNTER 2023-07-15 09:44 | Outpatient (CLI) | payer MEDICARE, SELFPAY ==
[2023-07-15 18:42] LABS: Basophils Percent Auto 0.4 % (0.2-1.2); Eosinophils Absolute Auto 0.2 K/mm3 (0-0.3); Eosinophils Percent Auto 2.4 % (0-4.4); Hematocrit 41.2 % (42.0-52.0); Hemoglobin 13.4 g/dL (14.0-18.0); Immature Granulocyte Absolute 0.03 K/mm3 (0.00-0.031); Immature Granulocyte Percent A 0.4 % (0-0.5); Lymphocytes Absolute Auto 2.07 K/mm3 (0.9-3.2); Lymphocytes Percent Auto 30.6 % (18.3-44.2); Mean Corpuscular HGB Conc 32.5 g/dl (32-36); Mean Corpuscular Hemoglobin 32.1 pg (26-34); Mean Corpuscular Volume 98.8 fl (80-100); Mean Platelet Volume 10.2 fl (7.4-10.4); Monocytes Absolute Auto 0.9 K/mm3 (0.1-0.6); Monocytes Percent Auto 13.7 % (2.6-8.5); Neutrophils Absolute Auto 3.6 K/mm3 (1.3-6.7); Neutrophils Percent Auto 52.5 % (45.5-73.1); Platelet Count Result 212 k/mm3 (150-375); Red Blood Count 4.17 M/mm3 (4.6-6.20); Red Cell Distribution Width 12.3 % (11.5-14.5); White Blood Count 6.8 K/mm3 (4.5-10.0)
[2023-07-15 19:24] LABS: Vitamin D 25 Hydroxy 61.1 ng/mL
[2023-07-15 19:33] LABS: Alanine Aminotransferase 24 U/L (6-50); Albumin Level 4.4 g/dL (3.5-5.1); Alkaline Phosphatase 73 U/L (38-126); Anion Gap 3 mmol/L (8-16); Aspartate Amino Transferase 37 U/L (17-59); Bilirubin,Total 1.5 mg/dL (0.2-1.3); Blood Urea Nitrogen 19 mg/dL (9-20); Calcium 9.2 mg/dL (8.4-10.2); Carbon Dioxide 32 mmol/L (22-30); Chloride 105 mmol/L (98-107); Cholesterol 197 mg/dL (0-200); Estimated Glomerular Filt Rate > 60; Glucose 90 mg/dL (65-110); HDL Direct 42 mg/dL; Potassium 3.9 mmol/L (3.4-5.0); Sodium 140 mmol/L (137-145); Triglycerides 267 mg/dL (<150)
[2023-07-15 19:46] LABS: LDL Cholesterol Direct 95 mg/dL
== END 2023-07-15 09:45 | disposition home or self-care (01) ==
PROVIDERS: PCP Nurse Practitioner; Visit Provider Nurse Practitioner
DX: Z13.228 Encounter for screening for other metabolic disorders (principal); Z13.220 Encounter for screening for lipoid disorders; E55.9 Vitamin D deficiency, unspecified; R61 Generalized hyperhidrosis; Z13.6 Encounter for screening for cardiovascular disorders
CPT/HCPCS: 36415; 80053; 80061; 82306; 84443; 85025

== ENCOUNTER 2024-02-11 12:16 | Outpatient (CLI) | payer MEDICARE, SELFPAY ==
--- NOTE | ~2024-02-11 | DEXA_ITS ---
Bone Density Report Name: ALBERTINA BROWN Age: 73 Sex: Male Ethnicity: White Date of : 1950 Indication: screening for osteoporosis; prior fracture; cancer; Referring Provider: LINDSEY BRADFORD Study: Bone densitometry was performed. Exam Date: February 11, 2024 Accession number: [id number] Bone Density: Region BMD T-score Z-score Classification AP Spine (L1-L4) 0.735 -3.2 -2.3 Osteoporosis Femoral Neck (Left) 0.589 -2.5 -1.2 Osteoporosis Total Hip (Left) 0.830 -1.3 -0.6 Osteopenia Femoral Neck (Right) 0.627 -2.2 -1.0 Osteopenia Total Hip (Right) 0.929 -0.7 0.1 Normal Total Hip Mean 0.880 -1.0 -0.3 Normal World Health Organization criteria for BMD impression classify patients as: Normal (T-score at or above -1.0), Osteopenia (T-score between -1.0 and -2.5), or Osteoporosis (T-score at or below -2.5). 10-year Fracture Risk: FRAX not reported because: Some T-score for Spine Total or Hip Total or Femoral Neck at or below -2.5 Clinical Information Provided by Patient: Has had a low trauma fracture Has used the following medications: Vitamin D, Calcium, RAFFAELE Has the following medical conditions: Cancer, 1THYROID REMOVED Patient maximum height was 71 Does not regularly consume dairy products Drinks caffeinated beverages Impression: The patient has established osteoporosis, based on the Total Spine T-score and the existence of a prior fracture. The patient has risk factors, including: previous fracture. Discussion: HIGH RISK OF FRACTURE. BONE DENSITY IS UNDESIRABLY LOW AT ONE OR MORE SKELETAL SITES, CONSISTENT WITH OSTEOPOROSIS. This patient's lowest T-score, in a patient who has previously fractured, meets the World Health Organization's (WHO) criteria for severe osteoporosis. In untreated patients, the risk of osteoporotic fracture increases approximately two-fold for each 1.0 SD decrease in T-score. Low bone density is not the only risk factor for fracture; also consider factors such as patient's age, frailty or poor health, risk of falling, risk of injury, previous osteoporotic fracture, family history of osteoporosis, cigarette smoking, low body weight, etc. Not everyone with low bone mineral density has osteoporosis; osteomalacia and other metabolic bone disorders should also be considered. Patients who have osteoporosis should be evaluated for specific diseases and conditions (secondary causes) that may cause or contribute to bone loss. The National Osteoporosis Foundation (NOF) recommends pharmacologic intervention for men with BMD at this level (a T-score of -2.5 or below). The patient should follow a healthful lifestyle (good nutrition with adequate calcium and vitamin D, and appropriate weight-bearing exercise). Follow-Up: Consider repeating this study in 2 years to reassess this patient's status, or sooner
== END 2024-02-11 12:17 ==
LOC: MICIMG 12:18
PROVIDERS: PCP Urology; Visit Provider Urology
DX: M85.88 Other specified disorders of bone density and structure, other site (principal); M81.0 Age-related osteoporosis without current pathological fracture; M85.852 Other specified disorders of bone density and structure, left thigh; M85.851 Other specified disorders of bone density and structure, right thigh
CPT/HCPCS: 77080

== ENCOUNTER 2024-06-28 11:58 | Outpatient (CLI) | payer MEDICARE, SELFPAY ==
--- NOTE | ~2024-06-28 | XR_ITS ---
AP and lateral views of the right hip Clinical history: Pain Findings: No acute fracture or dislocation is seen. Osseous alignment is anatomic. There is mild to m oderate right hip joint degenerative change. Soft tissues are unremarkable. Impression: Mild to moderate right hip joint degenerative change. Reviewed, dictated and finalized at location M. Impression: Mild to moderate right hip joint degenerative change.
== END 2024-06-28 11:59 | disposition home or self-care (01) ==
PROVIDERS: PCP Internal Medicine; Visit Provider Clinical Nurse Specialist
DX: M16.11 Unilateral primary osteoarthritis, right hip (principal)
CPT/HCPCS: 73502

== ENCOUNTER 2025-02-08 14:31 | Outpatient (CLI) | payer MEDICARE, SELFPAY ==
--- NOTE | ~2025-02-08 | XR_ITS ---
XR chest 2V Ordering provider: Carmita Cole NP History: 74 years Male with . R07.9 - Chest pain, unspecified . Comparison: September 08, 2022 FINDINGS: MEDIASTINUM: The cardiac silhouette is not enlarged. LUNGS: No infiltrates, effusions or pneumothorax. OTHER: No free air under the diaphragm. Degenerative changes of the spine. IMPRESSION: No acute cardiopulmonary pathology. Reviewed, dictated and finalized at location A.
== END 2025-02-08 14:32 | disposition home or self-care (01) ==
PROVIDERS: PCP Nurse Practitioner; Visit Provider Nurse Practitioner
DX: R07.9 Chest pain, unspecified (principal)
CPT/HCPCS: 71046

== ENCOUNTER 2025-03-13 09:01 | Outpatient (CLI) | payer MEDICARE, SELFPAY ==
--- OUTSIDE RECORDS SUMMARY | 2025-03-13 09:05 | XMS_ITS | Referral Summary ---
Author Organization [facility] Address [address] [place] [address] Care Team Providers Care Public Address Technician Name Role Phone Milad Morales DO Primary Care Provider [phone]- [phone] Allergies No known active allergies Medications acetaminophen 500 mg capsule Take 1 capsule (500 mg total) by mouth daily as needed Active allopurinoL (ZYLOPRIM) 100 mg tablet Take 2 tablets (200 mg total) by mouth every evening Active ascorbic acid (VITAMIN C) 1,000 mg tablet Take 1 tablet (1,000 mg total) by mouth daily Active cholecalciferol (VITAMIN D-3) 5,000 unit capsule Take 1 capsule (5,000 Units total) by mouth daily Active Nubeqa 300 mg tablet Take 2 tablets (600 mg total) by mouth 2 (two) times a day Active famotidine (PEPCID) 20 mg tablet Take 1 tablet (20 mg total) by mouth nightly Active leuprolide, monthly, (Eligard) 7.5 mg (1 month) syringe Inject 7.5 mg under the skin Active lidocaine (LIDODERM) 5 % Place 1 patch on the skin daily as needed for pain for up to 15 days Remove & discard patch within 12 hours or as directed by . 15 patch 06/22/2024 Active Active Problems No known active problems Social History Tobacco Use Types Packs/Day Years Used Date Smoking Tobacco: Never Assessed Sex and Gender Information Value Date Recorded Sex Assigned at Not on file Legal Sex Male 9:58 AM CDT Gender Identity Not on file Sexual Orientation Not on file Last Filed Vital Signs Vital Sign Reading Time Taken Comments Blood Pressure 126/70 06/22/2024 9:04 AM CDT Pulse 80 06/22/2024 9:04 AM CDT Temperature 37 C (98.6 F) 06/22/2024 9:04 AM CDT Respiratory Rate 20 06/22/2024 9:04 AM CDT Oxygen Saturation 99% 06/22/2024 9:04 AM CDT Inhaled Oxygen Concentration - - Weight 73.7 kg (162 lb 8 oz) 06/22/2024 9:04 AM CDT Height 177.8 cm (5' 10 ) 06/22/2024 9:04 AM CDT Body Mass Index 23.32 06/22/2024 9:04 AM CDT Plan of Treatment Not on file Insurance UHC MEDICARE ADVANTAGE [facility] MEDICARE Care Teams Public Address Technician Relationship Specialty Start Date End Date Milad Morales DO PCP - General 09/01/21
--- OUTSIDE RECORDS SUMMARY | 2025-03-13 09:05 | XMS_ITS | Clinical Summary ---
Author Organization [facility] Address [address] [place] [address] Care Team Providers Care Floor Molder Name Role Phone Milad Morales DO Primary Care Provider +1- [phone] Allergies No known active allergies Medications acetaminophen [...] on file Sexual Orientation Not on file Obstetrics History Last Filed Vital Signs Vital Sign Reading [...] 06/22/2024 9:04 AM CDT Plan of Treatment Health Maintenance Due Date Last Done Comments Colon Cancer Screening-Colonoscopy 1950 Depression Screening 1950 Fall Risk Assessment 1950 Hepatitis C Screening 1950 DTaP/Tdap/Td Vaccine (1 - Tdap) 1962 Hepatitis B Screening 1969 Abdominal Aortic Aneurysm (A AA) Screen 02/15/2016 Well Visit 65+ 02/15/2016 Pneumococcal vaccine 65+ (2 of 2 - PPSV23) 03/30/2019 02/02/2019 Covid-19 Vaccine (2 - Jansse n risk series) 01/20/2021 12/23/2020 Influenza Vaccine (Season Ended) 2025 08/07/2021, 08/16/2020, 08/28/2019, Additional history exists Zoster Vaccine Completed 05/23/2019, 02/02/2019 Insurance [facility] MEDIC[facility]VANTAGE [facility] Care Teams Floor Molder Relationship Specialty Start Date End Date Milad Morales DO PCP - General 09/01/21
--- OUTSIDE RECORDS SUMMARY | 2025-03-13 09:05 | XMS_ITS | Clinical Summary ---
Author Organization [facility] Address [address] [place] [address] Phone Care Team Providers Care Panel Fitter Name Role Phone Milad Morales DO Primary Care Provider Allergies No known active allergies Medications allopurinol (ZYLOPRIM) 100 MG Tablet Take 200 mg by mouth daily. Active Darolutamide (Nubeqa) 300 MG Tablet Take 600 mg by mouth in the morning and at bedtime. Active Cholecalciferol (Vitamin D) 125 MCG (5000 UT) Capsule Take 1 Capsule by mouth daily. Active Multiple Vitamins-Minera ls (ONE-A-DAY 50 PLUS PO) Take 1 Tablet by mouth daily. Active Ascorbic Acid (Vitamin C) 1000 MG Tablet Take 1 Tablet by mouth daily. Active Misc Natural Products (Glucosamine Chond Cmp Triple) Tablet Take 1 Tablet by mouth daily. 9115-3133 MG Active famotidine (PEPCID) 20 MG Tablet Take 20 mg by mouth every evening. Active Acetaminophen 500 MG Capsule Take 500 mg by mouth daily as needed. Active leuprolide (Eligard) 7.5 MG Kit 7.5 mg by Subcutaneous route every 30 days. Active Family History Medical History Relation Name Comments No Known Problems Father No Known Problems Mother Relation Name Status Comments Father Mother Social History Tobacco Use Types Packs/Day Years Used Date Smoking Tobacco: Former Cigarettes 2 27 1 7 - 1983 Smokeless Tobacco: Never Alcohol Use Standard Drinks/Week Comments Yes 2 (1 standard drink = 0.6 oz pur e alcohol) Sex and Gender Information Value Date Recorded Sex Assigned at Not on file Legal Sex Male 2:32 PM CDT Gender Identity Not on file Sexual Orientation Not on file Last Filed Vital Signs Vital Sign Reading Time Taken Comments Blood Pressure 145/69 06/14/2023 8:22 AM CDT Pulse 74 06/14/2023 8:22 AM CDT Temperature 36.2 C (97.1 F) 06/14/2023 8:22 AM CDT Respiratory Rate 16 06/14/2023 8:22 AM CDT Oxygen Saturation 99% 06/14/2023 8:22 AM CDT Inhaled Oxygen Concentration - - Weight 72.6 kg (160 lb) 06/02/2023 1:00 PM CDT Height 177.8 cm (5' 10 ) 06/02/2023 1:00 PM CDT Body Mass Index 22.96 06/02/2023 1:00 PM CDT Plan of Treatment Health Maintenance Due Date Last Done Comments Hepatitis C Virus (HCV) Screening 1950 TdaP Immunization 1950 Colonoscopy 02/15/1996 Colorectal Cancer Screening 02/15/1996 Cologuard 2001 Immunochemical Fecal Occult Blood 2001 Respiratory Syncytial Virus (RSV) Immunization (Adult) (1 - Risk 60-74 years 1-dose series) 2011 AAA Screening Ultrasound 02/15/2016 Pneumococcal Immunization (50+ years) (2 of 2 - PPSV23) 02/03/2020 02/02/2019 SARS-COV-2 Immunization (2 - Timi risk series) 01/20/2021 12/23/2020 Influenza Immunization (#1) 06/18/202408/18, 08/07/2021, 08/16/2020, Additional history exists Zoster Immunization Completed 05/23/2019, 9 Hepatitis B Immunization Aged Out No longer eligible based on patient's age to complete this topic Meningococcal Immunization (ACWY) Aged Out No longer eligible based on patient's age to complete this topic Rotavirus Immunization Aged Out No lo nger eligible based on patient's age to complete this topic Medical Devices Implanted Type Area Olericulture Teacher Device Identifier Shelf Expiration Date Model / Serial / Lot Left Intraocular Lens Implanted:Qty: 1 on 04/12/2023 by Ángel Nice MD at [facility] Left: Eye [employer] 12/06/2025 DIB00 / [id number] / [id number] [employer] Eyhance Iol Implanted:Qty: 1 on 06/14/2023 by Ángel Nice MD at [facility] Right: Eye [employer] 04/14/2024 [id number] / [id number] / [id number] Insurance MEDICARE C [employer] Care Teams Panel Fitter Relationship Specialty Start Date End Date Milad Morales DO [facility] [facility] [place] [address] PCP - General Internal Medicine 04/12/23
--- NOTE | 2025-03-13 09:06 | EST_ITS ---
Patient Info Name: Jerardo Ugarte Age: 75 years : 1950 Gender: Male Ht: 70 in Wt: 140 lbs BSA: 1.76 m2 HR: 70 bpm BP: 118 / 78 mmHg Exam Date: 03/13/2025 9:06 AM Patient Status: O Admit Date: 03/13/2025 Exam Type: CA stress test treadmill A treadmill exercise stress test was performed. Staff Attending Provider: Carmita Cole Exercise Technologist: Daniella Ennis Exercise Physician: Sudhakar Chapa DO Summary 1. 1. Negative Zeyad exercise stress test for ischemic ST changes by ECG criteria. 2. 2. Good functional capacity, achieving 10 METs of workload. 3. 3. Appropriate HR response to exercise. 4. 4. Appropriate HR recovery at 1 minute post exercise. 5. 5. No imaging with stress testing. 6. 6. Patient informed of the above results. Protocol: Zeyad Stress ECG Details Stage: REST Duration (min): 0 min : 41 sec Speed (mph): 0.0 Grade (%): 0 HR (bpm): 58 SBP (mmHg): --- DBP (mmHg): --- METS: --- Stage: REST Duration (min): 5 min : 22 sec Speed (mph): 0.0 Grade (%): 0 HR (bpm): 63 SBP (mmHg): 118 DBP (mmHg): 78 METS: --- Stage: STAGE 1 Duration (min): 1 min : 0 sec Speed (mph): 1.7 Grade (%): 10 HR (bpm): 85 SBP (mmHg): 118 DBP (mmHg): 78 METS: --- Stage: STAGE 1 Duration (min): 2 min : 0 sec Speed (mph): 1.7 Grade (%): 10 HR (bpm): 90 SBP (mmHg): 118 DBP (mmHg): 78 METS: --- Stage: STAGE 1 Duration (min): 3 min : 0 sec Speed (mph): 1.7 Grade (%): 10 HR (bpm): 89 SBP (mmHg): 116 DBP (mmHg): 72 METS: --- Stage: STAGE 2 Duration (min): 1 min : 0 sec Speed (mph): 2.5 Grade (%): 12 HR (bpm): 101 SBP (mmHg): 116 DBP (mmHg): 72 METS: --- Stage: STAGE 2 Duration (min): 2 min : 0 sec Speed (mph): 2.5 Grade (%): 12 HR (bpm): 106 SBP (mmHg): 146 DBP (mmHg): 83 METS: --- Stage: STAGE 2 Duration (min): 3 min : 0 sec Speed (mph): 2.5 Grade (%): 12 HR (bpm): 105 SBP (mmHg): 146 DBP (mmHg): 83 METS: --- Stage: STAGE 3 Duration (min): 1 min : 0 sec Speed (mph): 3.4 Grade (%): 14 HR (bpm): 121 SBP (mmHg): 164 DBP (mmHg): 85 METS: --- Stage: STAGE 3 Duration (min): 2 min : 0 sec Speed (mph): 3.4 Grade (%): 14 HR (bpm): 130 SBP (mmHg): 164 DBP (mmHg): 85 METS: --- Stage: STAGE 3 Duration (min): 2 min : 0 sec Speed (mph): 3.4 Grade (%): 14 HR (bpm): 131 SBP (mmHg): 164 DBP (mmHg): 85 METS: --- Stage: RECOVERY Duration (min): 0 min : 59 sec Speed (mph): 0.0 Grade (%): 0 HR (bpm): 97 SBP (mmHg): 182 DBP (mmHg): 86 METS: --- Stage: RECOVERY Duration (min): 1 min : 59 sec Speed (mph): 0.0 Grade (%): 0 HR (bpm): 70 SBP (mmHg): 182 DBP (mmHg): 86 METS: --- Stage: RECOVERY Duration (min): 2 min : 59 sec Speed (mph): 0.0 Grade (%): 0 HR (bpm): 77 SBP (mmHg): 145 DBP (mmHg): 85 METS: --- Stage: RECOVERY Duration (min): 3 min : 36 sec Speed (mph): 0.0 Grade (%): 0 HR (bpm): 84 SBP (mmHg): 145 DBP (mmHg): 85 METS: --- Rest HR: 63 bpm Peak HR: 131 bpm Rest Sys BP: 118 mmHg Peak Sys BP: 182 mmHg Max Pred HR: 146 bpm % Max Pred HR: 90 % Target HR: 124 bpm Max RPP: 23,842 bpm*mmHg Bryan Score: 3 Termination Reason: Reached target heart rate or workload Cardiac Symptoms: Shortness of breath Max ST Seg Deviation: -1.00 mm Total Time: 8 min : 0 sec Rest Gutierres BP: 78 mmHg Peak Gutierres BP: 86 mmHg Angina Score: None Total METS: 10.3 Resting ECG Sinus rhythm. Stress ECG No ST changes. Arrhythmias None. Report Signatures
== END 2025-03-13 09:02 | disposition home or self-care (01) ==
PROVIDERS: PCP Nurse Practitioner; Visit Provider Nurse Practitioner
DX: R07.9 Chest pain, unspecified (principal)
CPT/HCPCS: 93017

== ENCOUNTER 2025-08-13 02:03 | Day surgery (SDC) | payer MEDICARE, SELFPAY ==
[2025-08-09 13:48] VITALS: BMI 20.1
--- OUTSIDE RECORDS SUMMARY | 2025-08-13 02:05 | XMS_ITS | Clinical Summary ---
Author Organization [facility] Address [address] [place] [address] Phone Care Team Providers Care Medical Anthropologist Name Role Phone Milad Morales DO Primary [...] Tablet Take 1 Tablet by mouth daily. 6330-1715 MG Active famotidine (PEPCID) 20 MG Tablet [...] 1:00 PM CDT Height 177.8 cm (5' 10) 06/02/2023 1:00 PM CDT Body Mass Index 22.96 06/02/2023 1:00 PM CDT Plan of Treatment Health Maintenance Due Date Last Done Comments Hepatitis C Virus (HCV) Screening 1950 TdaP Immunization 1950 Cologuard 02/15/1996 Colonoscopy 02/15/1996 Colorectal Cancer Screening 02/15/1996 Immunochemical Fecal Occult Blood 02/15/1996 Respiratory Syncytial Virus (RSV) Immunization (Adult) (1 - Risk 60-74 years 1-dose series) 2011 Pneumococcal Immunization (50+ years) (2 of 2 - PCV20 or PCV21) 02/03/2020 02/02/2019 SARS-COV-2 Immunization (2 - Timi risk series) 01/20/2021 12/23/2020 Medicare Initial AWV [id number] 10/18/2023 Influenza Immunization (#1) 06/18/202508/18, 08/07/2021, 08/16/2020, Additional history exists Zoster Immunization Completed 05/23/2019, 9 Hepatitis B Immunization Aged Out No longer eligible based on patient's age to complete this topic Human Papillomavirus (HPV) Immunization Aged Out No longer eligible based on patient's age to complete this topic Meningococcal Immunization (ACWY) Aged Out No longer eligible based on patient's age to complete this topic Rotavirus Immunization Aged Out No lo nger eligible based on patient's age to complete this topic Medical Devices Implanted Type Area Animal Rides Manager Device Identifier Shelf Expiration Date Model / Serial / Lot Left Intraocular Lens Implanted:Qty: 1 on 04/12/2023 by Ángel Nice MD at [facility] Left: Eye [employer] 12/06/2025 DIB00 / DIB00 / [id number] [employer] Eyhance Iol Implanted:Qty: 1 on 06/14/2023 by Ángel Nice MD at [facility] Right: Eye [employer] 04/14/2024 [id number] / [id number] / [id number] Insurance MEDICARE C AETNA Care Teams Medical Anthropologist Relationship Specialty Start Date End Date Milad Morales DO [address] [facility] [place] [address] PCP - General Internal Medicine 04/12/23
--- OUTSIDE RECORDS SUMMARY | 2025-08-13 02:05 | XMS_ITS | Clinical Summary ---
Author Organization [facility] Address [address] [place] [address] Care Team Providers Care Grounding Engineer Name Role Phone Bandarisa Milad German SMITH Primary Care Provider Allergies No known active allergies Medications acetaminophen [...] 9:04 AM CDT Height 177.8 cm (5' 10) 06/22/2024 9:04 AM CDT Body Mass Index [...] Pneumococcal vaccine 65+ (2 of 2 - PPSV23, PCV20, or PCV21) 03/30/2019 02/02/2019 Covid-19 Vaccine (2 - Jansse n risk series) 01/20/2021 12/23/2020 Influenza Vaccine (#1) 2025 , 08/16/2020, 08/28/2019, Additional history exists Zoster Vaccine Completed 05/23/2019, 02/02/2019 Insurance [place] [employer] MEDICARE Care Teams Grounding Engineer Relationship Specialty Start Date End Date Milad Morales DO PCP - General 09/01/21
[2025-08-13 13:36] VITALS: BP 135/83; PULSE 92; RESP 18; TEMP 36.5; O2SAT 100
--- NOTE | 2025-08-13 14:08 | WPDANESEPPF ---
Anes - Initial Pre Proc Eval Procedure: Operation Date: 08/13/25 14:30 Proposed Procedures p Screening Colonoscopy - Rasta Pitts MD Date/Time: 08/13/25 14:08 Surgeon: Rasta Pitts MD Pre Op Diagnosis: Personal history of colon polyps, unspecified Patient Data Age: 75 Gender: M Height: 1.78 m Weight: 62.1 kg Last Vital Signs Temp 36.5 C 08/13/25 13:36 Pulse 92 08/13/25 13:36 Resp 18 08/13/25 13:36 BP 135/83 08/13/25 13:36 Pulse Ox 100 08/13/25 13:36 O2 Del Method Room Air 08/13/25 13:36 Allergies Allergy/AdvReac Type Severity Reaction Status Date / Time No Known Allergies Allergy Verified 08/13/25 13:34 Home Medications ?Medication ?Instructions ?Recorded ?Confirmed ?Type cholecalciferol (vitamin D3) 50 50 mcg PO DAILY 11/28/19 08/09/25 History mcg (2,000 unit) capsule multivitamin,na-thdy-[id number] 1 tablet PO DAILY 11/28/19 08/09/25 History (Complete Multivitamin tablet) glucosamine sulf dipot 1 cap PO DAILY 04/24/21 08/09/25 History chlr,msm,chond 550 mg-C 30 mg-yesenia 1 mg capsule (Glucosamine Chondroitin) ascorbate calcium (vitamin C) 500 500 mg PO DAILY 04/23/22 08/09/25 History mg tablet darolutamide 300 mg tablet (Nubeqa) 300 mg PO BID 02/01/23 08/09/25 History allopurinol 100 mg tablet 200 mg (2 x 100 mg) PO QPM #180 08/06/25 08/09/25 Rx tabs magnesium 250 mg tablet 250 mg PO DAILY 08/06/25 08/09/25 History Patient hx anesthesia problems: none Family hx anesthesia problems: none Results Review: All pre-operative results and documents have been reviewed as part of the pre-operative evaluation. [facility] Past Medical History Medical History Elevated PSA GERD (gastroesophageal reflux disease) Colon polyps Basal cell carcinoma Vitamin D deficiency Erectile dysfunction BPH (benign prostatic hyperplasia) Gout Surgical History Surgical History History of cataract surgery left and right eye History of prostatectomy (~04/2021) History of mastoidectomy H/O hernia repair History of thyroidectomy Family History Family History Mother , age 54 MVA (motor vehicle accident) Father , age 33 freak accident Electrocution Social History Social History Social History: caffeine-soda Smoking packs per day: 2 Smoking cigarettes per day: 40.0 Years smoked: 15 Smoking pack-years: 30.00 Smoking status: Former smoker Tobacco type: cigarettes Smoking end date: 10/18/83 Alcohol intake: current Drinks per week: 3 Alcohol use details: Beer Substance use type: does not use Lack of Transportation: No Current Housing: I Have Housing Concerned About Future Housing: Decline to Answer Difficulty Paying Gas/Electric Bills: Decline to Answer Difficulty Paying for Meds: Decline to Answer Currently Unemployed: Decline to Answer Education: Associate Degree Difficulty w/ Childcare or Family Care: Decline to Answer Living arrangements: with family Gender identity (if verbalized by the patient): Male Sexual Orientation (if Verbalized by the Patient): Straight or Heterosexual Anes - Eval Final PreProcedure Day of Procedure 08/13/25 14:08 Patient weight: thin Heart: regular rate and rhythm Lungs: decreased breath sounds Airway: Mallampati scale class II Neurological: alert and oriented Last oral intake: >/= 8 hours ASA classification: IV Emergent: no Anesthetic plan: proceed Anesthesia type and monitoring: general GIVS and standard monitoring Results Review: All pre-operative results and documents have been reviewed as part of the pre-operative evaluation. Informed Consent: The patient's anesthetic plan and its attendant risks and benefits were discussed with the patient/family/POA. Questions were solicited and answers provided to the satisfaction of the patient/family/POA.
[2025-08-13] MEDS: LACTATED RINGERS 1,000 ML 150 ML IV CONT (14:12)
--- NOTE | 2025-08-13 14:28 | PM.IMHP ---
H&P: HPI History of Present Illness Date/Time: 08/13/25 14:28 Chief Complaint: History of colon polyps Narrative: The patient has a history of colonic polyps, the last colonoscopy was 5 years ago. Review of Systems Review of Systems: All systems reviewed & are unremarkable except as noted in HPI and below PMFSH Past Medical History Medical History Elevated PSA GERD (gastroesophageal reflux disease) Colon polyps Basal cell carcinoma Vitamin D deficiency Erectile dysfunction BPH (benign prostatic hyperplasia) Gout Surgical History Surgical History History of cataract surgery left and right eye History of prostatectomy (~04/2021) History of mastoidectomy H/O hernia repair History of thyroidectomy Family History Family History Mother , age 54 MVA (motor vehicle accident) Father , age 33 freak accident Electrocution Social History Social History Social History: caffeine-soda Smoking packs per day: 2 Smoking cigarettes per day: 40.0 Years smoked: 15 Smoking pack-years: 30.00 Smoking status: Former smoker Tobacco type: cigarettes Smoking end date: 10/18/83 Alcohol intake: current Drinks per week: 3 Alcohol use details: Beer Substance use type: does not use Lack of Transportation: No Current Housing: I Have Housing Concerned About Future Housing: Decline to Answer Difficulty Paying Gas/Electric Bills: Decline to Answer Difficulty Paying for Meds: Decline to Answer Currently Unemployed: Decline to Answer Education: Associate Degree Difficulty w/ Childcare or Family Care: Decline to Answer Living arrangements: with family Gender identity (if verbalized by the patient): Male Sexual Orientation (if Verbalized by the Patient): Straight or Heterosexual Meds Home Medications and Allergies Home Medications ?Medication ?Instructions ?Recorded ?Confirmed ?Type cholecalciferol (vitamin D3) 50 50 mcg PO DAILY 11/28/19 08/09/25 History mcg (2,000 unit) capsule multivitamin,ah-[id number] 1 tablet PO DAILY 11/28/19 08/09/25 History (Complete Multivitamin tablet) glucosamine sulf dipot 1 cap PO DAILY 04/24/21 08/09/25 History chlr,msm,chond 550 mg-C 30 mg-yesenia 1 mg capsule (Glucosamine Chondroitin) ascorbate calcium (vitamin C) 500 500 mg PO DAILY 04/23/22 08/09/25 History mg tablet darolutamide 300 mg tablet (Nubeqa) 300 mg PO BID 02/01/23 08/09/25 History allopurinol 100 mg tablet 200 mg (2 x 100 mg) PO QPM #180 08/06/25 08/09/25 Rx tabs magnesium 250 mg tablet 250 mg PO DAILY 08/06/25 08/09/25 History Allergies Allergy/AdvReac Type Severity Reaction Status Date / Time No Known Allergies Allergy Verified 08/13/25 13:34 Vital Signs Vital Signs - 24 hr 08/13/25 13:36 Temperature 97.7 F Pulse Rate 92 Respiratory Rate 18 Blood Pressure 135/83 Pulse Oximetry 100 Oxygen Delivery Room Air Exam Const: General: cooperative and healthy appearing Resp: Effort & Inspection: normal respiratory effort and able to speak in complete sentences Auscultation: clear to auscultation bilaterally Cardio: Rate: regular rate Rhythm: regular rhythm GI: Inspection: normal to inspection GI Palp: No No hepatosplenomegaly present Auscultation: normal bowel sounds Rectal Exam: deferred Skin: General skin exam: normal color Psych: Appearance: grossly normal Mental Status: mental status grossly normal Assessment and Plan Assessment and plan (1) Colon polyps: Code(s): K63.5 - Polyp of colon Status: Acute Assessment and Plan: The patient is deemed a good candidate for the procedure. Consent signed. Will proceed.
--- NOTE | 2025-08-13 14:54 | S_PTH ---
PATIENT: Jerardo Ugarte LOC: [facility] U#:[id number] AGE/SX: 75/M ROOM: RE08/13/[address]: Rasta Pitts MD : 1950 BED: DIS: 08/13/2025 SPEC #: [id number] RECD: 08/14/25 07:32 STATUS: PRESTON REQ #: [id number] CARTER: 08/13/25 14:[address]: Rasta Pitts DEPT: [facility] Surgical RECD BY: Danilo Shen ENTERED: 08/14/25 07:32 SP TYPE: Surgical OTHR DR: Carmita Cole, CARY Tissues: A - Colon Polypectomy Procedures: Hematoxylin and Eosin Stain Gross and Microscopic Level 4
[2025-08-13 14:58] VITALS: BP 137/82; PULSE 72; RESP 20; O2SAT 100
[2025-08-13 15:08] VITALS: BP 158/88; PULSE 80; RESP 20; O2SAT 100
[2025-08-13 15:18] VITALS: BP 156/88; PULSE 80; RESP 20; O2SAT 100
== END 2025-08-13 15:27 | disposition home or self-care (01) ==
PROVIDERS: PCP Nurse Practitioner; Referring Provider Nurse Practitioner; Visit Provider Internal Medicine Gastroenterology
PROC: 0DJD8ZZ Inspection of Lower Intestinal Tract, Via Natural or Artificial Opening Endoscopic (ICD-10-PCS; CPT 45378; principal; 2025-08-13 14:30)
DX: Z12.11 Encounter for screening for malignant neoplasm of colon (principal); D12.2 Benign neoplasm of ascending colon; K57.30 Diverticulosis of large intestine without perforation or abscess without bleeding; K21.9 Gastro-esophageal reflux disease without esophagitis; E55.9 Vitamin D deficiency, unspecified; N52.9 Male erectile dysfunction, unspecified; N40.0 Benign prostatic hyperplasia without lower urinary tract symptoms; M10.9 Gout, unspecified; Z98.890 Other specified postprocedural states; Z87.891 Personal history of nicotine dependence; Z85.828 Personal history of other malignant neoplasm of skin
CPT/HCPCS: 45385; 88305; J2704; J7120